=== PATIENT | female | born 1955 | race Caucasian/White ===

== ENCOUNTER → 2016-05-15 | Outpatient (CLI) | payer OTHER ==
[~2016-05-15] MED LIST: METO25TA56 PO; NAPR-201 PO
== END | disposition home or self-care (01) ==
LOC: C.LABSPEC 12:44
PROVIDERS: ATTEND Internal Medicine
DX: Z12.11 Encounter for screening for malignant neoplasm of colon (principal)

== ENCOUNTER → 2016-05-17 | Outpatient (CLI) | payer OTHER ==
[2016-05-17 13:36] LABS: BASO % 0.5 %; BASO ABS # 0.02 K/uL (0-0.2); COMPLETE YES; EOS % 3.2 %; HEMATOCRIT 47.1 % (37-47); LYMPH % 39.2 %; LYMPH ABS # 1.72 K/uL (1.2-3.4); MEAN CELL VOLUME 87.7 fL (80-100); MEAN CORPUSCULAR HEMOGLOBIN 30.2 pg (25-34); MEAN CORPUSCULAR HGB CONC 34.4 g/dl (32-36); MEAN PLATELET VOLUME 10.6 fL (7.4-10.4); MONO % 11.8 %; NEUT % 45.3 %; PLATELET COUNT 211 K/uL (130-400); RED BLOOD COUNT 5.37 M/uL (4.2-5.4); WHITE BLOOD COUNT 4.39 K/uL (4.8-10.8)
[2016-05-17 13:50] LABS: ALT/SGPT 30 U/L (12-78); BLOOD UREA NITROGEN 26 mg/dl (7-18); CALCIUM 8.5 mg/dl (8.5-10.1); CARBON DIOXIDE 27 mmol/L (21-32); CHLORIDE 108 mmol/L (98-107); CHOLESTEROL 217 mg/dl (0-200); CREATININE 0.91 mg/dl (0.60-1.20); GLUCOSE 82 mg/dl (70-99); SODIUM 142 mmol/L (136-145)
[2016-05-17 14:00] LABS: ALB/GLOB RATIO 1.1 (0.9-2); ALKALINE PHOSPHATASE 76 U/L (45-117); AST/SGOT 17 U/L (15-37); CHOLESTEROL/HDL RATIO 4.2; HDL CHOLESTEROL 52 mg/dl; LDL CHOLESTEROL CALCULATED 139 mg/dl; THYROID STIMULATING HORMONE 0.876 uIu/ml (0.300-4.500); TRIGLYCERIDES 128 mg/dl (0-150); VERY LOW DENSITY LIPOPROT CALC 26 mg/dl
[2016-05-17 23:38] LABS: THYROXINE (T4) 8.1 mcg/dl (4.5-10.9)
== END | disposition home or self-care (01) ==
LOC: C.LABSPEC 12:39
PROVIDERS: ATTEND Internal Medicine
DX: E78.5 Hyperlipidemia, unspecified (principal); E55.9 Vitamin D deficiency, unspecified; E04.1 Nontoxic single thyroid nodule; Z86.79 Personal history of other diseases of the circulatory system

== ENCOUNTER → 2016-11-12 | Outpatient (CLI) | payer OTHER ==
[2016-11-12 13:37] LABS: CHOLESTEROL 204 mg/dl (0-200); CHOLESTEROL/HDL RATIO 4.3; HDL CHOLESTEROL 47 mg/dl; TRIGLYCERIDES 130 mg/dl (0-150); VERY LOW DENSITY LIPOPROT CALC 26 mg/dl
== END | disposition home or self-care (01) ==
LOC: C.LABSPEC 12:17
PROVIDERS: ATTEND Internal Medicine
DX: E78.5 Hyperlipidemia, unspecified (principal); E55.9 Vitamin D deficiency, unspecified

== ENCOUNTER → 2017-10-09 | Outpatient (CLI) | payer OTHER ==
[2017-10-09 14:40] LABS: BLOOD UREA NITROGEN 28 mg/dl (7-18); CALCIUM 8.9 mg/dl (8.5-10.1); CARBON DIOXIDE 25 mmol/L (21-32); CHOLESTEROL 208 mg/dl (0-200); CREATININE 0.93 mg/dl (0.60-1.20); GLUCOSE 93 mg/dl (70-99); LDL CHOLESTEROL (DIRECT) 144 mg/dl; POTASSIUM 4.3 mmol/L (3.5-5.1); SODIUM 140 mmol/L (136-145)
== END | disposition home or self-care (01) ==
LOC: C.LABSPEC 13:22
PROVIDERS: ATTEND Internal Medicine
DX: Z00.00 Encounter for general adult medical examination without abnormal findings (principal); E78.5 Hyperlipidemia, unspecified; E55.9 Vitamin D deficiency, unspecified

== ENCOUNTER 2017-11-11 15:05 | Emergency (ER) | payer OTHER ==
[~2017-11-11] VITALS: Ht 156.2 cm; Wt 70.5 kg
[2017-11-11 15:07] VITALS: TEMP 36.7; Ht 156.2 cm; Wt 70.5 kg
[2017-11-11] MEDS ORDERED: ONDANSETRON INJ 2 MG/ML 2 ML VIAL IV STA (15:18)
[2017-11-11] MEDS ORDERED: SODIUM CHLORIDE 0.9% 500ML 500 ML IV STA (15:18)
--- NOTE | 2017-11-11 15:40 | EMERGENCY ROOM VISIT NOTE ---
History Report prepared by Roro: Jenny Hanna Under the Supervision of: Dr. Lewis Alford M.D. First contact with patient: 15:10 Chief Complaint: VOMITING Stated Complaint: LIGHT-HEADED AND THROWING UP History of Present Illness The patient is a 62 year old female who presents to the Emergency Room with complaints of feelings of near syncope and vomiting starting 2 hours ago. The patient states that she felt fine this morning when she woke up. She reports that she started lindy potatoes, ate lunch, and then laid down on the couch till she had to go get a shower before work. She states that when she got up she felt lightheaded and like she was going to pass out. The patient states that she decided to shower anyway, but it got worse. She reports that she started becoming nauseous and vomited multiple times. She states that at this time she became scared so she decided to come to the ED. She notes that since arrival her symptoms have improved, but not completely resolved. The patient notes that she did not eat any of her lindy food and her had the same lunch, but did not become sick. She notes that she did not have her AC on in her house. She notes that she takes Metoprolol for a history of ventricular tachycardia and has not missed any doses. The patient denies loss of consciousness, hitting her head recently, chest pain, shortness of breath, abdominal pain, hematuria, hematemesis, coffee ground emesis, cough, headache, recent travel, recent trauma, recent surgeries, use of blood thinners, a history of blood clots, smoking, drinking alcohol, and having a pacemaker/ defibrillator. Source of History: patient Onset: a few hours ago Position: abdomen Quality: other (vomiting) Timing: other (persistent) Associated Symptoms: + nausea, + vomiting, No LOC, No headache, No cough, No chest pain, No SOB, No abdominal pain, No urinary symptoms (hematuria) Note: The patient complains of lightheadedness and feeling like she was going to pass out. The patient denies hitting her head recently, hematemesis, and coffee ground emesis. Review of Systems See HPI for pertinent positives and negatives. A total of ten systems were reviewed and were otherwise negative. Past Medical & Surgical Medical Problems: (1) Ventricular tachycardia Family History Patient reports no known family medical history. Social History Smoking Status: Never Smoker Marital Status: Housing Status: lives with significant other Occupation Status: employed Current/Historical Medications Scheduled Cholecalciferol (Vitamin D3), 1 TAB PO DAILY Cholecalciferol (1999), 2,000 UNITS PO DAILY Metoprolol Tartrate (Lopressor) (Lopressor), 25 MG PO DAILY Ondasetron Odt (Zofran Odt), 4 MG SL TID Ranitidine (Zantac), 150 MG PO DAILY Scheduled PRN Naproxen (Naproxen), 375 MG PO UD PRN for Pain Allergies Coded Allergies: Aspirin (Unverified Allergy, Mild, NONE, 11/11/17) Physical Exam Vital Signs Date Time Temp Pulse Resp B/P (MAP) Pulse Ox O2 Delivery O2 Flow Rate FiO2 11/11/17 16:25 56 16 143/83 96 Room Air 11/11/17 15:07 36.7 64 17 171/72 96 Room Air Physical Exam Physical Exam GENERAL: She is oriented to person, place, and time. She appears well- developed and well-nourished. She does not appear distressed. HENT: Exam performed. Head: Normocephalic and atraumatic. Right Ear: External ear normal. No mastoid tenderness. Left Ear: External ear normal. No mastoid tenderness. Mouth/Throat: The oropharynx is clear and moist. No trismus in the jaw. No dental abscesses or uvula swelling. No oropharyngeal exudate or tonsillar abscesses. EYES: Conjunctivae and EOM are normal. Pupils are equal, round, and reactive to light. Right eye exhibits no discharge. Left eye exhibits no discharge. No scleral icterus. NECK: Normal range of motion. Neck supple. No JVD present. No spinous process tenderness present. No carotid bruit present. No rigidity. No tracheal deviation and normal range of motion present. No Brudzinski's sign and no Kernig 's sign noted. CV: Normal rate, regular rhythm, normal heart sounds and intact distal pulses. There is no peripheral edema. Palpable radial pulses bue. PULM/CHEST: Effort normal and breath sounds normal. No respiratory distress. No stridor. She has no wheezes. She has no rales. Chest Wall: She exhibits no tenderness. ABD: The abdomen is soft. Bowel sounds are normal. She has no distension. No mass is present. There is no tenderness. There is no rebound, no guarding, no Forbes's sign and no tenderness at McBurney's point. Rovsig negative MUSC/SKEL: Normal range of motion. There is no peripheral edema, tenderness or deformity. LYMPH: No cervical adenopathy. NEURO: She is alert and oriented to person, place, and time. She has normal strength. No cranial nerve deficit or sensory deficit. Coordination and gait normal. GCS eye subscore is 4. GCS verbal subscore is 5. GCS motor subscore is 6. Cerebellar tests wnl. SKIN: Skin is warm and dry. She is not diaphoretic. PSYCH: She has a normal mood and affect. Behavior is normal. Judgment and thought content normal. Medical Decision & Procedures Laboratory Results Test 11/11/17 15:37 Bedside Hemoglobin 16.0 g/dl (12.0-16.0) Bedside Hematocrit 47 % (37-47) Bedside Sodium 142 mEq/L (135-144) Bedside Potassium 4.6 mEq/L (3.3-5.0) Bedside Chloride 101 mEq/L (101-112) Bedside Total CO2 31 mEq/l (24-31) Anion Gap 15.0 mmol/L (16-25) Bedside Blood Urea Nitrogen 23 mg/dl (7-18) Bedside Creatinine 1.0 mg/dl (0.6-1.3) Bedside Glucose (other) 128 mg/dl (70-99) Bedside Ionized Calcium (Tk) 1.23 mmol/l (1.12-1.32) Laboratory results reviewed by me Medications Administered Medications (Trade) Dose Ordered Sig/Jayde Route Start Time Stop Time Status Last Admin Dose Admin Sodium Chloride 500 ml @ 999 mls/hr Q31M STAT IV 11/11/17 15:18 11/11/17 15:48 DC 11/11/17 15:34 999 MLS/HR Ondansetron HCl (Zofran Inj) 4 mg NOW STAT IV 11/11/17 15:18 11/11/17 15:21 DC 11/11/17 15:34 4 MG ECG Per My Interpretation Indication: vomiting Rate (beats per minute): 55 Rhythm: sinus rhythm Findings: other (PA, QRS, and QT-c intervals are within normal limits, no ST elevations or depressions, mild T wave flattening in lead 3) ED Course 1513: The patient was evaluated in room C10. A complete history and physical exam was performed. 1518: Ordered Zofran Inj 4 mg IV, NSS 500 ml @ 999 mls/hr IV. 1556: I reevaluated the patient and she feels fine. Her labs and EKG are within normal limits. We will let the fluid bolus finish and reevaluate her then. 1628: I reevaluated the patient and she feels better no longer having symptoms of nausea, vomiting, or feelings of near syncope. Neurological exam within normal limits. DISCHARGE - Plan of care discussed with patient and questions answered. The patient was given both verbal and printed discharge instructions. The patient verbalized understanding and ability to comply. The patient is to seek outpatient follow up as noted in the discharge instructions. The patient verbalized understanding and ability to comply. The patient is discharged in stable condition. The patient was instructed to return for worsening symptoms. Medical Decision 1513: The patient was evaluated in room C10. A complete history and physical exam was performed. 1518: Ordered Zofran Inj 4 mg IV, NSS 500 ml @ 999 mls/hr IV. 1556: I reevaluated the patient and she feels fine. Her labs and EKG are within normal limits. We will let the fluid bolus finish and reevaluate her then. 1628: I reevaluated the patient and she feels better no longer having symptoms of nausea, vomiting, or feelings of near syncope. Neurological exam within normal limits. DISCHARGE - Plan of care discussed with patient and questions answered. The patient was given both verbal and printed discharge instructions. The patient verbalized understanding and ability to comply. The patient is to seek outpatient follow up as noted in the discharge instructions. The patient verbalized understanding and ability to comply. The patient is discharged in stable condition. The patient was instructed to return for worsening symptoms. Medication Reconcilliation Current Medication List: was personally reviewed by me Impression Primary Impression: Near syncope Scribe Attestation The scribe's documentation has been prepared under my direction and personally reviewed by me in its entirety. I confirm that the note above accurately reflects all work, treatment, procedures, and medical decision making performed by me. The chart was completed utilizing [employer] voice recognition software. Grammatical errors, random word insertions, pronoun errors, and incomplete sentences are an occasional consequence of this system due to software limitations, ambient noise, and hardware issues. Any formal questions or concerns about the content, text, or information contained within the body of this dictation should be directly addressed to the physician for clarification. Departure Information Dispostion Home / Self-Care Prescriptions Ondasetron Odt (ZOFRAN ODT) 4 Mg Tab 4 MG SL TID for Nausea, #30 TAB Prov: Lewis Alford M.D. 11/11/17 Referrals Tony Monteiro M.D. (PCP) Forms HOME CARE DOCUMENTATION FORM, IMPORTANT VISIT INFORMATION Patient Instructions My [facility] Additional Instructions Return to the emergency department if you develop fever greater 100.4, chest pain, difficulty breathing, lose consciousness, develop seizure, blood in your stool, blood in urine, or dark black tarry stools.
[2017-11-11 15:46] LABS: ISTAT IONIZED CALCIUM 1.23 mmol/l (1.12-1.32); ISTAT POTASSIUM 4.6 mEq/L (3.3-5.0)
[2017-11-11] MEDS ORDERED: CHOL1TAB76 PO (15:51)
[2017-11-11] MEDS ORDERED: NPR375 PO (15:51)
[2017-11-11] MEDS ORDERED: RANI150T85 PO (15:51)
[2017-11-11] MEDS ORDERED: CHOL20007 PO (15:51)
[2017-11-11 16:25] VITALS: BP 143/83; PULSE 56; O2SAT 96
[2017-11-11] MEDS ORDERED: ONDA4TAB10 SL (16:32)
== END 2017-11-11 16:46 | disposition home or self-care (01) ==
LOC: C.EDB 15:06 → C.EDC 16:46
DX: R55 Syncope and collapse (principal); R11.2 Nausea with vomiting, unspecified; I47.2 Ventricular tachycardia